=== PATIENT | female | born 1960 | race African-American/Black ===

== ENCOUNTER → 2016-09-02 | Outpatient (CLI) | payer BC, OTHER ==
--- NOTE | 2016-09-02 08:35 | RAD ---
EXAM: DIGITAL SCREEN BILAT W/CAD. HISTORY: Screening. Previous breast surgery. COMPARISON: 08/18/2015, 05/12/2014, 03/12/2013. FINDINGS: Digital mammography was performed. Computer-aided detection (CAD) was utilized. The breast parenchyma is primarily fatty (tissue density A). No dominant suspicious mass, suspicious microcalcifications, or new architectural distortion is identified. Surgical staple is seen involving the posterior left breast. There is also a small biopsy clip involving the posterior left breast. Right breast demonstrates several small lucent centered benign calcifications. IMPRESSION: No mammographic evidence of malignancy. BI-RADS CATEGORY: 2 BENIGN FINDING(S) RECOMMENDED FOLLOW-UP: 12M 12 MONTH FOLLOW-UP PQRS compliance statement: Patient information was entered into a reminder system with a target due date for the next mammogram. Mammography is a sensitive method for finding small breast cancers, but it does not detect them all and is not a substitute for careful clinical examination. A negative mammogram does not negate a clinically suspicious finding and should not result in delay in biopsying a clinically suspicious abnormality. "Our facility is accredited by the [employer] Mammography Program."
== END | disposition home or self-care (01) ==
LOC: MAMMO 08:01
PROVIDERS: ATTEND Nurse Practitioner Family
DX: Z12.31 Encounter for screening mammogram for malignant neoplasm of breast (principal)
CPT/HCPCS: G0202; 77067

== ENCOUNTER 2016-09-15 20:56 | Inpatient (IN) | payer BC, OTHER ==
[~2016-09-15] VITALS: Ht 170.2 cm; Wt 120.0 kg
[2016-09-15] MEDS ORDERED: HYDROmorphone 2 MG/ML VIAL IV ONE ×2 (22:00→22:45)
--- NOTE | 2016-09-15 23:30 | PHYS DOC ---
Past Medical History Past Medical History: Arthritis, GERD, Glaucoma Past Surgical History: Tubal ligation Additional Past Surgical Histo: BREASTS REDUCTION Alcohol Use: Occasionally Drug Use: None Adult General Chief Complaint Chief Complaint: KNEE INJURY HPI HPI 56-year-old female who had a fall at home several hours prior to arrival but was able to ambulate somewhat on her right leg and now have significant bruising and swelling to her right knee and inability to bear weight on that side. Patient presented from EMS and had 100 g of fentanyl in route. Upon arrival, she localizes all her pain primarily to her anterior knee with significant swelling and bruising seen. She denies hitting her head or having any loss consciousness with her fall. Review of Systems Review of Systems Constitutional: Denies fever or chills [] Eyes: Denies change in visual acuity, redness, or eye pain [] HENT: Denies nasal congestion or sore throat [] Respiratory: Denies cough or shortness of breath [] Cardiovascular: No additional information not addressed in HPI [] GI: Denies abdominal pain, nausea, vomiting, bloody stools or diarrhea [] : Denies dysuria or hematuria [] Musculoskeletal: Denies back pain, has joint pain [] Integument: Denies rash or skin lesions [] Neurologic: Denies headache, focal weakness or sensory changes [] Endocrine: Denies polyuria or polydipsia [] Current Medications Current Medications Current Medications Medications (Trade) Dose Ordered Sig/Rene Start Time Stop Time Status Last Admin Dose Admin Hydromorphone HCl (Dilaudid) 1 mg Q2HR PRN 09/16/16 00:45 UNV Ondansetron HCl (Zofran) 4 mg PRN Q8HRS PRN 09/16/16 00:45 09/17/16 00:44 UNV Allergies Allergies Allergies Coded Allergies Type Severity Reaction Last Updated Verified No Known Drug Allergies 09/15/16 No Physical Exam Physical Exam Constitutional: Well developed, well nourished, no acute distress, non-toxic appearance. [] HENT: Normocephalic, atraumatic, bilateral external ears normal, oropharynx moist, no oral exudates, nose normal. [] Eyes: PERRLA, EOMI, conjunctiva normal, no discharge. [] Neck: Normal range of motion, no tenderness, supple, no stridor. [] Cardiovascular:Heart rate regular rhythm, no murmur [] Lungs & Thorax: Bilateral breath sounds clear to auscultation [] Abdomen: Bowel sounds normal, soft, non-tender, no masses, no pulsatile masses. [] Skin: Warm, dry, no erythema, no rash. [] Back: No tenderness, no CVA tenderness. [] Extremities: Moderate tenderness and swelling to the right knee with significant bruising along the anterior knee, no cyanosis, no clubbing, ROM intact, no edema. [] Neurologic: Alert and oriented X 3, normal motor function, normal sensory function, no focal deficits noted. [] Psychologic: Affect normal, judgement normal, mood normal. [] Current Patient Data Vital Signs Vital Signs Date Time Temp Pulse Resp B/P (MAP) Pulse Ox O2 Delivery O2 Flow Rate FiO2 09/15/16 22:39 16 Room Air 09/15/16 21:24 97.0 78 162/72 (102) 99 97.0 EKG EKG [] Radiology/Procedures Radiology/Procedures PROCEDURE CT right knee without contrast HISTORY Right knee injury and pain TECHNIQUE Exposure: One or more of the following individualized dose reduction techniques were utilized for this exam: 1. Automated exposure control. 2. Adjustment of the mA and/or kV according to patient size. 3. Use of iterative reconstruction technique. Helical noncontrast CT imaging of the right knee was acquired COMPARISON No prior FINDINGS no fracture or dislocation of the patella, distal femur, proximal tibia or proximal fibula. There is slight lateral subluxation of the patella of no more than 25 percent relative to the trochlea. There is mild medial compartment early changes of osteoarthritis with joint space narrowing and mild femoral condyle osteophyte. There is a large heterogeneous density anterior and medial knee hematoma at the prepatellar space but extending both suprapatellar and infrapatellar measures 10 centimeters transverse by 4 centimeters AP by 8 centimeters craniocaudal, contours the patellar tendon, quadriceps tendon and patella as well as the vastus medialis muscle. Phleboliths at the low anterior calf. IMPRESSION No acute osseous injury. Large anterior medial knee soft tissue hematoma as described above. Electronically signed by: Jose Ricketts MD (September 16, 2016 00:17:17) Course & Med Decision Making Course & Med Decision Making Pertinent Labs and Imaging studies reviewed. (See chart for details) 56-year-old female with significant right knee pain and swelling after a fall will have CT imaging performed of her right knee as she is unable to tolerate right knee x-ray. Patient was given a total of 2 mg of Dilaudid with significant relief of her pain. CT of the right knee demonstrates no acute osseous injury but a large anterior and medial knee hematoma that extends from the suprapatellar space to the infrapatellar space measuring 10 cm transverse by 4 cm AP by 8 cm cranial caudal. Patient's knee was too large for a traditional knee immobilizer and so she was immobilized using several knee immobilizers and attempts were made to give the patient crutches for home but she fell while attempting to use them. For this reason, I'll be admitting her as the does not feel safe caring for her at home. As needed pain medications will be given. Orthopedic consult will be placed. The case will be discussed with the hospitalist. Sherie Disclaimer Dragon Disclaimer This electronic medical record was generated, in whole or in part, using a voice recognition dictation system. Departure Departure Impression: Primary Impression: Right knee injury Additional Impression: Hematoma Disposition: 09 ADMITTED INPATIENT Admitting Physician: Mando Wells Condition: IMPROVED Referrals: SILKE MANRIQUEP (PCP) Patient Instructions: Hematoma, [id number], Knee Immobilizer, [id number], Knee Pain, [id number] Additional Instructions: Please remain in your immobilizer and use crutches for the next several days. Take your pain medications as needed. Follow-up with your primary care doctor or the orthopedic surgeon for any continued pain. An orthopedic follow-up has been provided. Return to the ER immediately if you develop any worsening of your symptoms. Scripts Oxycodone/Apap 5-325 (PERCOCET 5-325 MG TABLET) 1 Each Tablet 1 TAB PO PRN Q6HRS Y for PAIN, #16 TAB 0 Refills Prov: JAYLYN BECK DO 09/16/16 Problem Qualifiers JAYLYN BECK DO September 15, 2016 23:30
--- NOTE | 2016-09-16 00:18 | RAD ---
PROCEDURE CT right knee without contrast HISTORY Right knee injury and pain TECHNIQUE Exposure: One or more of the following individualized dose reduction techniques were utilized for this exam: 1. Automated exposure control. 2. Adjustment of the mA and/or kV according to patient size. 3. Use of iterative reconstruction technique. Helical noncontrast CT imaging of the right knee was acquired COMPARISON No prior FINDINGS no fracture or dislocation of the patella, distal femur, proximal tibia or proximal fibula. There is slight lateral subluxation of the patella of no more than 25 percent relative to the trochlea. There is mild medial compartment early changes of osteoarthritis with joint space narrowing and mild femoral condyle osteophyte. There is a large heterogeneous density anterior and medial knee hematoma at the prepatellar space but extending both suprapatellar and infrapatellar measures 10 centimeters transverse by 4 centimeters AP by 8 centimeters craniocaudal, contours the patellar tendon, quadriceps tendon and patella as well as the vastus medialis muscle. Phleboliths at the low anterior calf. IMPRESSION No acute osseous injury. Large anterior medial knee soft tissue hematoma as described above. Electronically signed by: Jose Ricketts MD (September 16, 2016 00:17:17)
[2016-09-16] MEDS ORDERED: OXYC-323 PO ×2 (00:27→11:40)
[2016-09-16] MEDS ORDERED: HYDROmorphone 2 MG/ML VIAL IV ONE (00:30)
[2016-09-16] MEDS ORDERED: HYDROmorphone 2 MG/ML VIAL IV PRN (00:45)
[2016-09-16] MEDS ORDERED: ONDANSETRON PF 4 MG/2 ML VIAL. IV PRN (00:45)
[2016-09-16] MEDS ORDERED: hydrOXYzine PAMOATE 25 MG CAPSULE PO PRN (01:30)
[2016-09-16 03:00] VITALS: BP 127/72
[2016-09-16 07:00] VITALS: BP 130/62
--- NOTE | 2016-09-16 09:41 | PDOC1 ---
History and Physical Past Medical History Past Medical History Past Medical History: Arthritis, GERD, Glaucoma Past Surgical History: Tubal ligation Additional Past Surgical Histo: BREASTS REDUCTION Alcohol Use: Occasionally Drug Use: None Family History Family History: Hypertension Social History Smoke: No ALCOHOL: none Drugs: None Current Problem List Problem List Problems Medical Problems: (1) Hematoma Status: Acute (2) Right knee injury Status: Acute Current Medications Current Medications Current Medications Medications (Trade) Dose Ordered Sig/Rene Start Time Stop Time Status Last Admin Dose Admin Hydromorphone HCl (Dilaudid) 1 mg PRN Q2HR PRN 09/16/16 00:45 Hydroxyzine Pamoate (Vistaril) 25 mg PRN Q6HRS PRN 09/16/16 01:30 09/16/16 02:10 25 MG Ondansetron HCl (Zofran) 4 mg PRN Q8HRS PRN 09/16/16 00:45 09/17/16 00:44 Allergies Allergies Allergies Coded Allergies Type Severity Reaction Last Updated Verified No Known Drug Allergies 09/15/16 No ROS Review of System CONSTITUTIONAL: No fever or chills EYES: No recent changes SKIN: No rash or itching CARDIOVASCULAR: No chest pain, syncope, palpitations, or edema RESPIRATORY: No SOB or cough GASTROINTESTINAL: No nausea, vomiting or abdominal pain NEUROLOGICAL: No headaches or weakness ENDOCRINE: No cold or heat intolerance GENITOURINARY: No urgency or frequency of urination MUSCULOSKELETAL: r knee pain LYMPHATICS: No enlarged lymph nodes PSYCHIATRIC: No anxiety or depression Physical Exam Physical Exam GEN.: No apparent distress. Alert and oriented. HEENT: Head is normocephalic, atraumatic NECK: Supple. no jvd LUNGS: Clear to auscultation. HEART: RRR, S1, S2 present. Peripheral pulses intact ABDOMEN: Soft, nontender. Positive bowel sounds. EXTREMITIES: R knee hematoma, ROM limited. NEUROLOGIC: Normal speech, normal tone PSYCHIATRIC: Normal affect, normal mood. SKIN: No ulcerations Vitals Vitals Vital Signs Date Time Temp Pulse Resp B/P (MAP) Pulse Ox O2 Delivery O2 Flow Rate FiO2 09/16/16 03:51 Room Air 09/16/16 03:00 97.4 74 19 127/72 (90) 99 97.4 VTE Prophylaxis Ordered VTE Prophylaxis Devices: No VTE Pharmacological Prophylaxi: No TRISTAN VEGA MD September 16, 2016 09:41
[2016-09-16 11:00] VITALS: BP 120/65
[2016-09-16] MEDS ORDERED: HYDROcodone/APAP 5/325MG 1 TAB TABLET PO PRN (11:45)
--- NOTE | 2016-09-16 16:55 | PDOC2 ---
CONSULT Date of Consult Date of Consult DATE: 09/16/16 TIME: 16:47 Reason for Consult Reason for Consult: right knee pain s/p fall Identification/Chief Complaint Chief Complaint Right knee pain s/p fall Source Source: Patient History of Present Illness Reason for Visit: The patient fell yesterday and sustained a large hematoma to her right knee. She was placed in a knee immobilizer and has been able to ambulate. 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 She had a ct scan done which revealed no acute fracture, but a large hematoma anterior to her knee. She is not on any blood thinners. She states that the swelling has gone down in her knee since her fall yesterday. Past Medical History Cardiovascular: No pertinent hx Past Surgical History Past Surgical History: No pertinent history Family History Family History no pertinent history per patient Social History No ALCOHOL: none Lives: with Family Current Problem List Problem List Problems Medical Problems: (1) Hematoma Status: Acute (2) Right knee injury Status: Acute Current Medications Current Medications Current Medications Hydromorphone HCl (Dilaudid) 1 mg 1X ONCE IV Last administered on 09/15/16 22: 08; Start 09/15/16 at 22:00; Stop 09/15/16 at 22:01; Status DC Hydromorphone HCl (Dilaudid) 1 mg 1X ONCE IV Last administered on 09/15/16 22: 39; Start 09/15/16 at 22:45; Stop 09/15/16 at 22:46; Status DC Hydromorphone HCl (Dilaudid) 0.5 mg 1X ONCE IV ; Start 09/16/16 at 00:30; Stop 09/16/16 at 00:31; Status DC Ondansetron HCl (Zofran) 4 mg PRN Q8HRS PRN IV NAUSEA/VOMITING; Start 09/16/16 at 00:45; Stop 09/17/16 at 00:44 Hydromorphone HCl (Dilaudid) 1 mg PRN Q2HR PRN IV PAIN; Start 09/16/16 at 00:45 Hydroxyzine Pamoate (Vistaril) 25 mg PRN Q6HRS PRN PO ITCHING Last administered on 09/16/16 02:10; Start 09/16/16 at 01:30 Acetaminophen/ Hydrocodone Bitart (Lortab 5/325) 1 tab PRN Q6HRS PRN PO PAIN Last administered on 09/16/16t 11:53; Start 09/16/16 at 11:45 Active Scripts Active Percocet 5-325 Mg Tablet (Oxycodone/Acetaminophen) 1 Each Tablet 1 Tab PO PRN Q6HRS PRN Allergies Allergies: Coded Allergies: No Known Drug Allergies (Unverified , 09/15/16) ROS General: No: Chills, Night Sweats, Fatigue, Malaise, Appetite, Other Musculoskeletal: Yes Joint Pain, Yes Joint Stiffness, Yes Joint Swelling Physical Exam General: Alert, Oriented X3, Cooperative, No acute distress MUSCULOSKELETAL: Other (rle in knee immobilizer, ttp over the anterior knee. blister medially. fluctuant mass over the knee. extensor mechanism intact. nvi distally. flexion to 80 with pain anteriorly. ) Vitals VITALS Vital Signs Date Time Temp Pulse Resp B/P (MAP) Pulse Ox O2 Delivery O2 Flow Rate FiO2 09/16/16 12:53 Room Air 09/16/16 11:00 98.1 57 21 120/65 (83) [address] of the right knee reveals no acute fracture or dislocation. anterior hematoma. Assessment/Plan Assessment/Plan The patient is s/p fall onto her right knee. -Pain control -wbat -can wear knee immobilizer if it makes her feel better. -can follow-up prn. CANDIDA BLANCA MD September 16, 2016 16:55
--- NOTE | 2016-09-16 23:44 | SSS ---
ADMIT DATE: 09/16/2016 CHIEF COMPLAINT: Right knee pain. HISTORY OF PRESENT ILLNESS: A 56-year-old female with history of gastritis and severe arthritis presented to the ER with complaints of fall at home. The patient's knees gave away and she hit her right knee to the floor and developed some bruising and swelling and inability to walk and bear weight. The patient was brought to the hospital by EMS and she was groggy after IV fentanyl. Imaging studies such as lower extremity CT scan showed large anterior medial soft tissue hematoma seen and no fractures identified . As she was feeling groggy and not able to leave from ER, she was admitted to the hospital for orthopedic workup. At the time of my examination, the patient is getting better, pain is better and swelling is better. She has already had a supportive cast. She has been recommended to use the crutches and follow up with primary care doctor and outpatient physical therapy as scheduled. PAST MEDICAL HISTORY: Please see my electronic H and P. REVIEW OF SYSTEMS: Please see my electronic H and P. PHYSICAL EXAMINATION: Please see my electronic H and P. BRIEF HOSPITAL COURSE: A 56-year-old female patient admitted to the hospital for right knee injury after sustaining a mechanical fall. She had anterior knee hematoma and swelling, which has been improving and she was evaluated by Dr. Su during hospitalization and deemed stable enough to go home and followup with primary care doctor and Dr. Su as needed. The patient has been sent home with oral Homer for pain control and she was also provided crutches and knee immobilizer. DISCHARGE DISPOSITION: Home. DISCHARGE CONDITION: Stable. MEDICATIONS: Reviewed and reconciled. Total time spent for H and P and discharge summary is 45 minutes. TRISTAN VEGA MD DR: TANISHA/margot JOB#: [id number] / [id number] HALEY
== END 2016-09-16 17:35 | disposition home or self-care (01) | DRG 605 ==
LOC: ER 20:56 → 5 NORTH 09-16 00:37
PROVIDERS: ADMIT Internal Medicine; ATTEND Internal Medicine
DX: S80.01XA Contusion of right knee, initial encounter (principal); M19.90 Unspecified osteoarthritis, unspecified site; H40.9 Unspecified glaucoma; K21.9 Gastro-esophageal reflux disease without esophagitis; W18.39XA Other fall on same level, initial encounter; Y93.89 Activity, other specified; Y92.098 Other place in other non-institutional residence as the place of occurrence of the external cause; Y99.8 Other external cause status; Z82.49 Family history of ischemic heart disease and other diseases of the circulatory system
CPT/HCPCS: 29505; 73700; 96374; J1170; Q0177; 99285-25

== ENCOUNTER → 2017-10-29 | Outpatient (CLI) | payer BC | END | disposition home or self-care (01) | LOC: MAMMO 10:22 | DX: Z12.31 Encounter for screening mammogram for malignant neoplasm of breast (principal) | CPT/HCPCS: 77067 ==

== ENCOUNTER → 2018-11-02 | Outpatient (CLI) | payer BC ==
[~2018-11-02] MED LIST: OXYC1TAB15 PO
--- NOTE | 2018-11-03 09:03 | RAD ---
DATE: 11/02/2018 2:00 PM EXAM: MAMMO GREG SCREENING BILATERAL HISTORY: routine screening evaluation. History of breast reduction. COMPARISON: Prior mammographic imaging dating back to 09/02/2016 Bilateral CC and MLO views of the breasts were performed. Bilateral breast tomosynthesis was performed in CC and MLO projections. This study was interpreted with the benefit of Computerized Aided Detection (CAD). Breast Density: The breast parenchyma is primarily fatty replaced. Breast parenchyma level density A. FINDINGS: Benign calcifications are present. Apparent architectural distortion in the inferior left breast likely from prior breast reduction No suspicious masses, microcalcifications or architectural distortion is present to suggest malignancy in either breast. The visualized axillae are unremarkable. IMPRESSION: No mammographic evidence of malignancy. BI-RADS CATEGORY: 2 BENIGN FINDING(S) RECOMMENDED FOLLOW-UP: 12M 12 MONTH FOLLOW-UP Annual screening mammography is recommended, unless clinically indicated sooner based on symptoms or change in physical exam. PQRS compliance statement: Patient information was entered into a reminder system with a target due date 11/03/2019 for the next mammogram. Mammography is a sensitive method for finding small breast cancers, but it does not detect them all and is not a substitute for careful clinical examination. A negative mammogram does not negate a clinically suspicious finding and should not result in delay in biopsying a clinically suspicious abnormality. "Our facility is accredited by the [employer] Mammography [employer]." [place]
== END | disposition home or self-care (01) ==
LOC: MAMMO 07:53
PROVIDERS: ATTEND Family Medicine
DX: Z12.31 Encounter for screening mammogram for malignant neoplasm of breast (principal); N64.89 Other specified disorders of breast
CPT/HCPCS: 77063; 77067